=== PATIENT | male | born 2000 | race African-American/Black ===

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

== ENCOUNTER 2020-09-18 11:15 | Emergency (ER) | payer MEDICARE, OTHER ==
[~2020-09-18] VITALS: Ht 185.4 cm; Wt 74.8 kg
[2020-09-18] MEDS ORDERED: PROMETHAZINE HC25 M1 PO (14:45)
== END 2020-09-18 14:50 | disposition home or self-care (01) ==
LOC: ED 11:15
DX: R10.11 Right upper quadrant pain (principal); R11.2 Nausea with vomiting, unspecified; J45.909 Unspecified asthma, uncomplicated; F17.200 Nicotine dependence, unspecified, uncomplicated; Z91.048 Other nonmedicinal substance allergy status
CPT/HCPCS: 76705; 80053; 81001; 83690; 85025; 96374; 96375; 99284-25; J1885; J2405

== ENCOUNTER 2021-03-23 23:13 | Emergency (ER) | payer MEDICARE, OTHER ==
[~2021-03-23] VITALS: Ht 185.4 cm; Wt 74.8 kg
[~2021-03-23 23:13] MED LIST changes: +PROMETHAZINE HC25 M1 PO
--- NOTE | 2021-03-25 07:10 | EKG ---
[facility] [address] [place] [address] Signed Normal sinus rhythm with sinus arrhythmia Normal ECG No previous ECGs available Confirmed by RAMON SEQUEIRA MD ([id number]) on 03/25/2021 7:09:49 AM Electronically Signed By: RAMON SEQUEIRA MD 03/25/21 0710 PATIENT NAME: MARTIR TAYLOR Electrocardiogram DATE OF : [birth year] PHYSICIAN: RAMON SEQUEIRA MD REPORT #: [id number] REPORT IS CONFIDENTIAL AND NOT TO BE RELEASED WITHOUT AUTHORIZATION
== END 2021-03-24 01:26 | disposition home or self-care (01) ==
LOC: ED 23:13
DX: F41.9 Anxiety disorder, unspecified (principal); Z20.822 Contact with and (suspected) exposure to COVID-19; J45.909 Unspecified asthma, uncomplicated; F17.200 Nicotine dependence, unspecified, uncomplicated; Z91.048 Other nonmedicinal substance allergy status
CPT/HCPCS: 71045; 93005; 93010; 99285-25; A9270-GY; C9803; U0003

== ENCOUNTER 2021-09-30 03:04 | Emergency (ER) | payer MEDICARE, OTHER ==
[~2021-09-30] VITALS: Ht 185.4 cm; Wt 80.0 kg
[2021-09-30] MEDS ORDERED: ONDANSETRON ODT8 MG PO (04:11)
--- NOTE | 2021-09-30 21:01 | EKG ---
[facility] [address] [facility] [place], [place] [address] Signed Sinus bradycardia Otherwise normal ECG When compared with ECG of 24-MAR-2021 00:19, No significant change was found Confirmed by MEGAN RAZA DO ([id number]) on 09/30/2021 9:00:52 PM Electronically Signed By: MEGAN RAZA DO 09/30/212100 PATIENT NAME: MARTIR TAYLOR RYAN Electrocardiogram DATE OF : [birth year] PHYSICIAN: MEGAN RAZA DO REPORT #: [id number] REPORT IS CONFIDENTIAL AND NOT TO BE RELEASED WITHOUT AUTHORIZATION
== END 2021-09-30 04:32 | disposition home or self-care (01) ==
LOC: ED 03:04
DX: B34.9 Viral infection, unspecified (principal); J45.909 Unspecified asthma, uncomplicated; F17.200 Nicotine dependence, unspecified, uncomplicated; Z91.048 Other nonmedicinal substance allergy status
CPT/HCPCS: 71046; 93005; 93010; 99285-25; A9270

== ENCOUNTER 2021-10-14 18:31 | Emergency (ER) | payer MEDICARE, OTHER ==
[~2021-10-14] VITALS: Ht 185.4 cm; Wt 80.0 kg
[~2021-10-14 18:31] MED LIST changes: +ONDANSETRON ODT8 MG PO
--- OUTSIDE RECORDS SUMMARY | 2021-10-14 18:38 | XMS ---
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 Oswald has no Care Guidelines for this patient. [facility] V[facility] (12 MO.) [facility] NOTE: Visits indicate total known visits. [facility] VISIT TRACKING (12 MO.) [facility] COMPLAINT: - DIFFICULTY BREATHING 09/30/2021 03:05 [facility] [place] TYPE: Emergency COMPLAINT: - CHEST PAIN, FEVER, N/V/D, SHAKY DIAGNOSES: - Fever, unspecified - Unspecified asthma, uncomplicated - Nicotine dependence, unspecified, uncomplicated - Other nonmedicinal substance allergy status - Viral infection, unspecified 03/23/2021 23:14 [facility] [place] TYPE: Emergency COMPLAINT: - SOB DIAGNOSES: - Other nonmedicinal substance allergy status - Nicotine dependence, unspecified, uncomplicated - Anxiety disorder, unspecified - Dyspnea, unspecified - Unspecified asthma, uncomplicated INPATIENT VISIT TRACKING (12 MO.) No inpatient visits to display in this time frame [email or web address]
--- NOTE | 2021-10-15 19:36 | EKG ---
[facility] [address] [facility] [place] [address] Signed Sinus rhythm with premature supraventricular complexes Otherwise normal ECG When compared with ECG of 30-SEP-2021 03:24, premature supraventricular complexes are now present Confirmed by MEGAN RAZA DO ([id number]) on 10/15/2021 7:36:13 PM Electronically Signed By: MEGAN RAZA DO 10/15/21 193 PATIENT NAME: JOY TAYLORASHLEY DAVIS Electrocardiogram DATE OF : 89 PHYSICIAN: MEGAN RAZA DO REPORT #: [id number] REPORT IS CONFIDENTIAL AND NOT TO BE RELEASED WITHOUT AUTHORIZATION
== END 2021-10-14 20:48 | disposition home or self-care (01) ==
LOC: ED 18:31
DX: F41.9 Anxiety disorder, unspecified (principal); R06.00 Dyspnea, unspecified; J45.909 Unspecified asthma, uncomplicated; F17.200 Nicotine dependence, unspecified, uncomplicated; Z91.048 Other nonmedicinal substance allergy status; Z20.822 Contact with and (suspected) exposure to COVID-19
CPT/HCPCS: 36415; 71045; 80048; 85025; 93005; 93010; 96374; 99285-25; C9803; J2060; U0003

== ENCOUNTER 2022-05-16 00:48 | Emergency (ER) | payer MEDICARE, OTHER ==
[~2022-05-16] VITALS: Ht 185.4 cm; Wt 77.3 kg
== END 2022-05-16 02:18 | disposition home or self-care (01) ==
LOC: ED 00:48
DX: H60.93 Unspecified otitis externa, bilateral (principal); H69.93 Unspecified Eustachian tube disorder, bilateral; J45.909 Unspecified asthma, uncomplicated; F17.200 Nicotine dependence, unspecified, uncomplicated; Z91.048 Other nonmedicinal substance allergy status; Z91.018 Allergy to other foods
CPT/HCPCS: 99282; A9270

== ENCOUNTER 2023-01-24 07:59 | Emergency (ER) | payer MEDICARE, OTHER ==
[~2023-01-24] VITALS: Ht 185.4 cm; Wt 84.4 kg
[2023-01-24 11:16] VITALS: BP 147/80
== END 2023-01-24 11:18 | disposition home or self-care (01) ==
LOC: ED 07:59
DX: M25.562 Pain in left knee (principal); Y04.2XXA Assault by strike against or bumped into by another person, initial encounter; J45.909 Unspecified asthma, uncomplicated; F17.200 Nicotine dependence, unspecified, uncomplicated; Z91.018 Allergy to other foods; Z91.048 Other nonmedicinal substance allergy status
CPT/HCPCS: 73560; 99283-25

== ENCOUNTER 2023-03-16 13:47 | Emergency (ER) | payer MEDICARE, OTHER ==
[~2023-03-16] VITALS: Ht 185.4 cm; Wt 84.4 kg
[2023-03-16] MEDS ORDERED: ERYTHROMYCIN1 GM OD (15:44)
[2023-03-16 15:55] VITALS: BP 134/93
== END 2023-03-16 15:55 | disposition home or self-care (01) ==
LOC: ED 13:47
DX: H00.012 Hordeolum externum right lower eyelid (principal); J45.909 Unspecified asthma, uncomplicated; F17.200 Nicotine dependence, unspecified, uncomplicated; Z91.018 Allergy to other foods; Z91.048 Other nonmedicinal substance allergy status
CPT/HCPCS: 99283

== ENCOUNTER 2023-03-30 07:38 | Emergency (ER) | payer MEDICARE, OTHER ==
[~2023-03-30] VITALS: Ht 185.4 cm; Wt 81.9 kg
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
--- OUTSIDE RECORDS SUMMARY | ~2023-03-30 | XMS | Continuity of Care Document ---
Demographics + + + | Address | [address] | | | [place] [address] | + + + | Preferred Language | Unknown | + + + | Marital Status | Never | + + + | Nondenominational Affiliation | Unknown | + + + | Race | Unknown | + + + | Ethnic Group | Not or | + + + Author + + + | Author | [place] | + + + | Organization | [place] | + + + | Address | [address] | | | [place] [address] | + + + | Phone | | + + + Care Team Providers + + + + | Care Legal Document Assistant Name | Role | Phone | + [...] | 2023-03-16 00:00 | SERTRALINE HCL | [facility] | + + + + | 2023-03-16 00:00 | Erythromycin Base | [facility] | + + + + | 2023-03-16 00:00 | MIRTAZAPINE | [facility] | + + + + | 2021-09-30 00:00 | ONDANSETRON | [facility] | + + + + | 2023-03-16 00:00 | RISPERIDONE | [facility] | + + + + | 2014-05-06 00:00 | METRONIDAZOLE | [facility] | + + + + | 2023-03-16 00:00 | LISDEXAMFETAMINE | [facility] | | | DIMESYLATE | | + + + + | 2015-05-23 00:00 | HYDROCODONE | [facility] | | | BIT/ACETAMINOPHEN | | + + + + | 2016-10-06 00:00 | HYDROCODONE | [facility] | | | BIT/ACETAMINOPHEN | | + + + + | 2023-03-16 00:00 | GUANFACINE HCL | [facility] | + + + + | 2020-09-18 00:00 | PROMETHAZINE HCL | [facility] | + + + + Problems + + + + | date | description | facility | + + + + | 2014-05-06 00:00 | Abscess of right buttock | [facility] | + + + + | 2014-05-06 00:00 | Abscess of right buttock | [facility] | + + + + | 2014-12-17 00:00 | Hyperventilation | [facility] | + + + + | 2014-12-17 00:00 | Hyperventilation | [facility] | + + + + | 2014-12-17 00:00 | Postural lightheadedness | [facility] | + + + + | 2014-12-17 00:00 | Postural lightheadedness | [facility] | + + + + | 2015-10-13 00:00 | Left anterior knee pain | [facility] | + + + + | 2015-10-13 00:00 | Left anterior knee pain | [facility] | + + + + | 2016-10-06 00:00 | Recurrent dislocation of | [facility] | | | left patella | | + + + + | 2016-10-06 00:00 | Recurrent dislocation of | [facility] | | | left patella | | + + + + | 2016-10-06 00:00 | Left knee pain | [facility] | + + + + | 2016-10-06 00:00 | Left knee pain | [facility] | + + + + | 2020-09-18 00:00 | Abdominal pain | [facility] | + + + + | 2020-09-18 00:00 | Abdominal pain | [facility] | + + + + | 2020-09-18 00:00 | Vomiting | [facility] | + + + + | 2020-09-18 00:00 | Vomiting | [facility] | + + + + | 2021-03-24 00:00 | Anxiety | [facility] | + + + + | 2021-03-24 00:00 | Anxiety | [facility] | + + + + | 2021-03-24 00:00 | Dyspnea | [facility] | + + + + | 2021-03-24 00:00 | Dyspnea | [facility] | + + + + | 2021-09-30 00:00 | Viral infection | [facility] | + + + + | 2021-09-30 00:00 | Viral infection | [facility] | + + + + | 2022-05-16 00:00 | Otitis externa | [facility] | + + + + | 2022-05-16 00:00 | Otitis externa | [facility] | + + + + | 2022-05-16 00:00 | Dysfunction of eustachian | [facility] | | | tube | | + + + + | 2022-05-16 00:00 | Dysfunction of eustachian | [facility] | | | tube | | + + + + | 2023-01-24 00:00 | Acute pain of left knee | [facility] | + + + + | 2023-01-24 00:00 | Acute pain of left knee | [facility] | + + + + | 2023-01-24 [...] 00:00 | Hordeolum of right eye | [facility] | + + + + | 2023-03-16 [...]
[~2023-03-30 07:38] MED LIST changes: +ERYTHROMYCIN1 GM OD
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
[2023-03-30 08:44] VITALS: BP 161/84
== END 2023-03-30 08:45 | disposition home or self-care (01) ==
LOC: ED 07:38
DX: H57.11 Ocular pain, right eye (principal); F17.200 Nicotine dependence, unspecified, uncomplicated; Z91.048 Other nonmedicinal substance allergy status; Z91.018 Allergy to other foods
CPT/HCPCS: 99283

== ENCOUNTER 2023-06-20 12:30 | Emergency (ER) | payer MEDICARE, OTHER ==
[~2023-06-20] VITALS: Ht 185.4 cm; Wt 83.3 kg
[2023-06-20] MEDS ORDERED: IBU600 MG PO (12:51)
[2023-06-20 13:05] VITALS: BP 121/88
== END 2023-06-20 12:58 | disposition home or self-care (01) ==
LOC: ED 12:30
DX: S90.31XA Contusion of right foot, initial encounter (principal); W22.8XXA Striking against or struck by other objects, initial encounter; J45.909 Unspecified asthma, uncomplicated; F17.200 Nicotine dependence, unspecified, uncomplicated; Z91.018 Allergy to other foods; Z91.048 Other nonmedicinal substance allergy status
CPT/HCPCS: 73630; A9270